=== PATIENT | female | born 1960 | race Caucasian/White ===

== ENCOUNTER 2017-05-05 07:07 | Day surgery (SDC) | payer OTHER ==
[2017-05-04 10:28] VITALS: BMI 37.8
[~2017-05-05] VITALS: Ht 149.9 cm; Wt 84.9 kg
[2017-05-05] VITALS (11 sets, daily range): BP systolic 118–136; BP diastolic 68–86; PULSE 82–92; RESP 15–25; Ht 149.9 cm; Wt 84.9 kg
[~2017-05-05 07:07] MED LIST: CLINDAMYCIN 600 MG/50 ML D5W IVPB IVPB ONE; DICY10CA62 PO; LOSA100T47 PO; OMEP40CA3 PO; POTA20TA15 PO; SOD CHLORIDE 0.9% 1,000 ML IV SCH
[2017-05-05] MEDS ORDERED: LOSA25TA5 PO (08:31)
[2017-05-05] MEDS ORDERED: OXYCODONE/ACETAMINOPHEN (5/325) TAB PO PRN ×2 (09:00)
[2017-05-05] MEDS ORDERED: KETOROLAC 30 MG INJ IV PRN (09:00)
[2017-05-05] MEDS ORDERED: MEPERIDINE 25 MG INJ IV PRN (09:00)
[2017-05-05] MEDS ORDERED: hydrALAzine 20 MG INJ IV PRN (09:00)
[2017-05-05] MEDS ORDERED: ONDANSETRON 4 MG INJ IV PRN (09:00)
[2017-05-05] MEDS ORDERED: METOCLOPRAMIDE 10 MG INJ IV PRN (09:00)
[2017-05-05] MEDS ORDERED: DIPHENHYDRAMINE 50 MG INJ IV PRN (09:00)
[2017-05-05] MEDS ORDERED: HYDROmorphONE (0.2 MG/ML) 10ML SYG IV PRN ×3 (09:00)
[2017-05-05] MEDS ORDERED: EPHEDrine SULFATE 50 MG/5 ML SYG IV PRN (09:00)
[2017-05-05] MEDS ORDERED: LABETALOL HCL 20MG INJ IV PRN (09:00)
[2017-05-05] MEDS ORDERED: FENTAnyl 50 MCG/ML VIAL IV PRN ×3 (09:00)
[2017-05-05] MEDS ORDERED: ROCURONIUM 50 MG INJ ONE (09:16)
[2017-05-05] MEDS ORDERED: PROPOFOL 20 ML ONE (09:16)
[2017-05-05] MEDS ORDERED: LIDOCAINE 2% (SDV) 5 ML INJ ONE (09:16)
[2017-05-05] MEDS ORDERED: FENTAnyl 50 MCG/ML VIAL ONE (09:17)
[2017-05-05] MEDS ORDERED: BUPIVACAINE 0.25% (MPF) 30 ML INJ ONE (09:34)
[2017-05-05] MEDS ORDERED: DEXAMETHASONE 4 MG/ML 1 ML INJ ONE (09:45)
[2017-05-05] MEDS ORDERED: ONDANSETRON 4 MG INJ ONE (09:54)
[2017-05-05] MEDS ORDERED: SUGAMMADEX SODIUM 200 MG/2 ML VIAL IV ONE (09:56)
[2017-05-05] MEDS ORDERED: HYDROCODONE/APAP (5/325) TAB PO ONE (10:00)
--- NOTE | 2017-05-05 10:02 | OPR ---
Date/Time of Note Date/Time of Note DATE: 05/05/17 TIME: 09:58 Operative Report Procedure Date: May 05, 2017 Preoperative Diagnosis symptomatic gallstones Postoperative Diagnosis same Operation/Procedure Performed 1. laparoscopic cholecystectomy 2. 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 She requests surgical excision of her gallbladder. Risks alternatives benefits and percent were discussed the patient. Patient expresses understanding and consents to the operation. Procedure Description Patient is taken to the OR and prepped and draped in usual sterile fashion. Surgical timeout was performed. IV antibiotics were given. Infraumbilical transverse incision is made with a 15 blade. Dissection cautery was carried down to the fascia. The fascia was grasped with Joshua's and divided with curved Callahan scissors. 0 Vicryl U stitch was placed into the fascia. Blueness on trocar is introduced. Pneumoperitoneum is established. Midepigastric 12 mm optical trocar was placed under direct visualization. Right upper quadrant upper flank 5 mm optical trochars were placed under direct visualization. Upon initial inspection there are some adhesions to the gallbladder which were taken down bluntly. The gallbladder was grasped and outward and lateral direction. This allowed mobilization of the gallbladder. The cautery was used to perform lateral dissection and to carefully dissect out the cystic duct. The critical view was established. The cystic duct was divided with 3 clips proximal and the distal end was thickened and was divided with a 35 mm echelon vascular stapler. The cystic artery was divided with 3 clips proximal and clip distal. The gallbladder was taken of the gallbladder bed. There is good hemostasis. The gallbladder was retrieved using Endo Catch bag. Ports removed under direct visualization. 0 Vicryl U stitch was tied down. Skin was closed using skin deepika. Therapeutic subcutaneous local anesthesia was injected throughout the incision sites. Dressings were applied. Sophia ACE May 05, 2017 10:02
== END 2017-05-05 11:54 | disposition home or self-care (01) ==
LOC: SDS 07:07
PROVIDERS: ATTEND Surgery
DX: K80.10 Calculus of gallbladder with chronic cholecystitis without obstruction (principal); I10 Essential (primary) hypertension; Z88.0 Allergy status to penicillin
CPT/HCPCS: 47562; 88304; J1100; J1170; J2175; J2405; J3010; Z7512; Z7610